=== PATIENT | female | born 1990 | race Caucasian/White ===

== ENCOUNTER 2023-09-25 12:58 | Emergency (ER) | payer MEDICAID, SELFPAY ==
[2023-09-25 13:03] VITALS: BP 134/98; PULSE 79; TEMP 36.9; O2SAT 98; BMI 24.6
--- NOTE | 2023-09-25 13:07 | XR_ITS ---
The [address] [address] Patient Name: SHARAD ALVARADO MRN: [id number] date: 1990 Sex: F Assigned Patient Location: ED.MAIN Current Patient Location: ED.MAIN Accession/Order Number: [id number] Exam Date: 09/25/2023 13:10 Report Date: 09/25/2023 13:29 At the request of: LATRICIA CAMARA Procedure: XR wrist RT min 3V EXAM: XR wrist RT min 3V HISTORY: wrist pain injury. COMPARISON: None. TECHNIQUE: PA, oblique, lateral x-ray right wrist. FINDINGS: No fracture or dislocation. Normal mineralization. Normal joints and soft tissues. XR/XR wrist RT min 3V IMPRESSION: Unremarkable right wrist, negative for fracture. Electronically authenticated by: ANAM ESCAMILLA Date: 09/25/2023 13:29
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
== END 2023-09-25 13:50 | disposition home or self-care (01) ==
PROVIDERS: Emergency Provider Emergency Medicine Emergency Medical Services
DX: S60.211A Contusion of right wrist, initial encounter (principal); Y04.2XXA Assault by strike against or bumped into by another person, initial encounter
CPT/HCPCS: 73110; 99283